=== PATIENT | female | born 1955 | race Two or more races ===

== ENCOUNTER 2017-02-15 06:07 | Emergency (ER) | payer OTHER ==
[~2017-02-15] VITALS: Ht 167.6 cm; Wt 75.0 kg
[2017-02-15 06:14] VITALS: Ht 167.6 cm; Wt 75.0 kg
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
[2017-02-15] MEDS ORDERED: ACETAMINOPHEN 325 MG TAB PO ONE (07:00)
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
[2017-02-15] MEDS ORDERED: ACET500C5 PO (08:06)
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
== END 2017-02-15 08:30 | disposition home or self-care (01) ==
LOC: FTE 06:07
DX: S29.9XXA Unspecified injury of thorax, initial encounter (principal); S00.33XA Contusion of nose, initial encounter; R07.89 Other chest pain; V49.49XA Driver injured in collision with other motor vehicles in traffic accident, initial encounter
CPT/HCPCS: 70160; 71020